=== PATIENT | female | born 1935 | race Caucasian/White ===

== ENCOUNTER 2018-06-03 15:53 | Emergency (ER) | payer OTHER, MEDICARE ==
--- NOTE | 2018-06-03 16:29 | RAD REPORT ---
EXAM DESCRIPTION: CT - Head C Spine Mpr Wo Con - 06/03/2018 4:18 pm CLINICAL HISTORY: Head and neck injury status post fall. Head and neck pain COMPARISON: None. TECHNIQUE: Computed axial tomography of the head and cervical spine was obtained. Sagittal and coronal reconstruction was performed. All CT scans are performed using dose optimization technique as appropriate and may include automated exposure control or mA/KV adjustment according to patient size. FINDINGS: An intracranial bleed is not seen. The ventricles are normal in caliber. An extra-axial fl uid collection is not noted.Fluid within the visualized sinuses and mastoids is not seen A cervical fracture is not visualized. No dislocation is noted. Mild posterior subluxation of C4 on C 5 with disc space narrowing and osteophytes. This probably is chronic. IMPRESSION: No acute intracranial abnormality is seen. A cervical fracture is not visualized. If the patient continues to have symptoms to suggest intracra nial /spinal cord/ligamentous pathology then MRI would be recommended
--- NOTE | 2018-06-03 16:30 | RAD REPORT ---
EXAM DESCRIPTION: RAD - Wrist Left 2 View - 06/03/2018 4:13 pm CLINICAL HISTORY: Left wrist pain status post fall FINDINGS: Limited two-view series was obtained. Bones are osteoporotic. No fracture or dislocation seen. If patient continues have symptoms to suggest an occult fracture fol low-up three-view plain film series in 1 week would be recommended
--- NOTE | 2018-06-03 16:44 | ER ---
Nurse's Notes [facility] Name: Tavia Nunez Age: 82 yrs Sex: Female : 1935 Arrival Date: 06/03/2018 Time: 15:55 Bed 4 Private MD: Diagnosis: Other slipping, tripping and stumbling and falls;Pain in left wrist;Contusion of left wrist Presentation: 06/03 15:57 Presenting complaint: EMS states: [facility] states pt had an unwitnessed tw2 fall this morning and originally had no complaints, now she c/o pain to the LEFT wrist, vs stable, HX: COPD, dementia, oxygen use 3L nc. Transition of care: patient was received from another setting of care (long-term care facility), [facility]. Onset of symptoms was June 03, 2018. Risk Assessment: Do you want to hurt yourself or someone else? Patient reports no desire to harm self or others. Initial Sepsis Screen: Does the patient meet any 2 criteria? No. Patient's initial sepsis screen is negative. Does the patient have a suspected source of infection? No. Patient's initial sepsis screen is negative. Care prior to arrival: None. 15:57 Method Of Arrival: EMS: [facility] [place] tw2 15:57 Acuity: TOVA 3 tw2 16:00 Mechanism of Injury: Fall unwitnessed, so unknown. Trauma event details: Injury sg occurred in the [facility], Injury occurred: [facility] Injury occurred: June 03, 2018. Trauma Activation: Alert Physician: ED Physician; Name: ; Notified At: ; Arrived At: Physician: General Surgeon; Name: ; Notified At: ; Arrived At: Physician: Radiology; Name: ; Notified At: ; Arrived At: Physician: Respiratory; Name: ; Notified At: ; Arrived At: Physician: Lab; Name: ; Notified At: ; Arrived At: Historical: - Allergies: 16:09 No Known Allergies; tw2 - Home Meds: 16:09 acetaminophen 325 mg Oral tab 2 tabs every 6 hours [Active]; bisacodyl 5 mg Oral TbEC 2 tw2 tabs [Active]; Brovana 15 mcg/2 mL inhalation nebu 2 mL 2 times per day [Active]; citalopram 20 mg tab 1 tab once daily [Active]; Evista 60 mg Oral tab 1 tab once daily [Active]; ipratropium-albuterol 0.5 mg-3 mg(2.5 mg base)/3 mL Inhl nebu 3 mL 4 times per day [Active]; lovastatin 10 mg Oral tab 1 tab once daily [Active]; mirtazapine 7.5 mg Oral tab 2 tabs once daily [Active]; Restasis 0.05 % ophthalmic dpet 1 drop 2 times per day [Active]; Spiriva with HandiHaler 18 mcg inhalation CpDv 1 cap once daily [Active]; spironolactone 25 mg Oral tab 1 tab once daily [Active]; Tussin DM 10-100 mg/5 mL oral syrp 10 mL every 4 hours [Active]; Xanax 0.5 mg Oral tab 1 tab 3 times per day [Active]; - PMHx: 16:09 COPD; Dementia; Chronic pain; major depressive disorder; tw2 - Immunization history: Last tetanus immunization: unknown. - Social history:: Smoking status: . - Ebola Screening: : Patient negative for fever greater than or equal to 101.5 degrees Fahrenheit, and additional compatible Ebola Virus Disease symptoms Patient denies exposure to infectious person Patient denies travel to an Ebola-affected area in the 21 days before illness onset No symptoms or risks identified at this time. Screenin:00 Abuse screen: Denies threats or abuse. Denies injuries from another. Tuberculosis sg screening: No symptoms or risk factors identified. Never had TB. 16:00 Nutritional screening: No deficits noted. Fall Risk Fall in past 12 months (25 points). sg Primary Survey: 16:00 NO uncontrolled hemorrhage observed. A: The patient is alert. Airway: patent. tw2 Breathing/Chest: Respiratory pattern: regular, Respiratory effort: spontaneous, unlabored, Breath sounds: clear, bilaterally. Chest inspection: symmetrical rise and fall of the chest. Circulation: Heart tones present. Disability Alert. Exposure/Environment: A warming method has been applied: A warm blanket has been provided to the patient. 16:05 Reassessment Airway Airway Patent Oxygen No O2 Oral cavity Clear Breathing/Chest sg Respiratory pattern Regular Respiratory effort Spontaneous Unlabored Breath sounds Clear Chest inspection Symmetrical Circulation Heart tones Present Color [place] Temperature Warm Dry. Secondary Survey: 16:00 HEENT: No deficits noted. Gastrointestinal: No deficits noted. Abdomen is soft, sg non-distended, Bowel sounds present in all quadrants. Palpation No deficit noted. : No signs and/or symptoms were reported regarding the genitourinary system. Musculoskeletal: Circulation, motion, and sensation intact. Range of motion: intact in all extremities, Swelling present in left wrist bruising that is dark purple and green and yellow noted to wrist. Assessment: 15:57 Reassessment: Dr. Nunez at bedside at this time. tw2 16:10 General: Appears in no apparent distress. comfortable, well groomed, well developed, sg well nourished, Behavior is calm, cooperative, appropriate for age. Pain: Complains of pain in thoracic area and left wrist Quality of pain is described as tender, throbbing. 16:53 Reassessment: Report called to Ros nurse at [facility] for [facility] awaiting transport back to [place] at this time. Vital Signs: 15:57 Temp 97.6(O); tw2 15:57 BP 130 / 74; Pulse 82; Resp 21; Pulse Ox 96% on R/A; sg Kristin Coma Score: 15:57 Eye Response: spontaneous(4). Verbal Response: oriented(5). Motor Response: obeys tw2 commands(6). Total: 15. 15:57 Eye Response: spontaneous(4). Verbal Response: oriented(5). Motor Response: obeys sg commands(6). Total: 15. Trauma Score (Adult): 15:57 Eye Response: spontaneous(1); Verbal Response: oriented(1); Motor Response: obeys tw2 commands(2); Systolic BP: > 89 mm Hg(4); Respiratory Rate: 10 to 29 per min(4); Kristin Score: 15; Trauma Score: 12 16:57 Eye Response: spontaneous(1); Verbal Response: confused(1); Motor Response: obeys sg commands(2); Systolic BP: > 89 mm Hg(4); Respiratory Rate: 10 to 29 per min(4); [place] Score: 14; Trauma Score: 12 ED Course: 15:55 Patient arrived in ED. tw2 15:56 Geovany Nunez MD is Attending Physician. kdr 15:59 Triage completed. tw2 16:00 Patient maintains SpO2 saturation greater than 95% on room air. sg 16:00 Thermoregulation: warm blanket given to patient. sg 16:02 Patient has correct armband on for positive identification. Bed in low position. Call sg light in reach. Side rails up X2. groundwater monitoring technician on. Pulse ox on. NIBP on. Door closed. Warm blanket given. Pillow given. Head of bed elevated. 16:[address] via stretcher. nj 16:13 Wrist Left 2 View In Process Unspecified. EDMS 16:15 CT completed. Patient tolerated procedure well. Patient moved back from CT. nj 16:15 Arm band placed on. sg 16:18 Head C Spine Mpr Wo Con In Process Unspecified. EDMS 16:30 No provider procedures requiring assistance completed. Patient did not have IV access sg during this emergency room visit. 16:55 Enrique Aguilar, RN is Primary Nurse. sg Administered Medications: No medications were administered Output: 16:57 Urine: 250ml (Voided); Total: 250ml. sg Outcome: 16:44 Discharge ordered by . kdr 16:50 Discharged to detention. Report called to Ros MAGANA sg 16:50 Condition: good 16:50 Instructed on follow up and referral plans. medication usage, safety practices, Demonstrated understanding of instructions, follow-up care, Prescriptions given X 1. 16:50 Patient's length of stay was not longer than 2 hours. 16:55 Discharge instructions given to patient, family, Ros MAGANA at [facility] 16:56 Patient left the ED. sg Signatures: Dispatcher [employer] EDDE Enrique Aguilar, RN RN Geovany Nunez MD MD [facility] Alexus Covington RN RN tw2 Nabor Perdomo Corrections: (The following items were deleted from the chart) 16:14 16:[address] via stretcher. nj nella
--- NOTE | 2018-06-03 16:44 | EDPHYS ---
Physician Documentation [facility] Name: Tavia Nunez Age: 82 yrs Sex: Female : 1935 Arrival Date: 06/03/2018 Time: 15:55 Bed 4 Private MD: ED Physician Geovany Nunez HPI: 06/03 17:07 This 82 yrs old Female presents to ER via EMS with complaints of Fall Injury. kdr 17:07 Details of fall: The patient fell from an upright position, while standing, while kdr walking. Onset: The symptoms/episode began/occurred suddenly, just prior to arrival. Associated injuries: The patient sustained left wrist. Severity of symptoms: At their worst the symptoms were very mild, in the emergency department the symptoms are unchanged. It is unknown whether or not the patient has had similar symptoms in the past. It is unknown whether or not the patient has recently seen a physician. The patient was found [facility] the ground by the jail staff. Her fall was unwitnessed. Historical: - Allergies: 16:09 No Known Allergies; tw2 - Home Meds: 16:09 acetaminophen 325 mg Oral tab 2 tabs every 6 hours [Active]; bisacodyl 5 mg Oral TbEC 2 tw2 tabs [Active]; Brovana 15 mcg/2 mL inhalation nebu 2 mL 2 times per day [Active]; citalopram 20 mg tab 1 tab once daily [Active]; Evista 60 mg Oral tab 1 tab once daily [Active]; ipratropium-albuterol 0.5 mg-3 mg(2.5 mg base)/3 mL Inhl nebu 3 mL 4 times per day [Active]; lovastatin 10 mg Oral tab 1 tab once daily [Active]; mirtazapine 7.5 mg Oral tab 2 tabs once daily [Active]; Restasis 0.05 % ophthalmic dpet 1 drop 2 times per day [Active]; Spiriva with HandiHaler 18 mcg inhalation CpDv 1 cap once daily [Active]; spironolactone 25 mg Oral tab 1 tab once daily [Active]; Tussin DM 10-100 mg/5 mL oral syrp 10 mL every 4 hours [Active]; Xanax 0.5 mg Oral tab 1 tab 3 times per day [Active]; - PMHx: 16:09 COPD; Dementia; Chronic pain; major depressive disorder; tw2 - Immunization history: Last tetanus immunization: unknown. - Social history:: Smoking status: . - Ebola Screening: : Patient negative for fever greater than or equal to 101.5 degrees Fahrenheit, and additional compatible Ebola Virus Disease symptoms Patient denies exposure to infectious person Patient denies travel to an Ebola-affected area in the 21 days before illness onset No symptoms or risks identified at this time. ROS: 17:07 Constitutional: Unable to obtain as the patient is a poor historian Eyes: Negative for kdr injury, pain, redness, and discharge. 17:07 Unable to obtain ROS due to baseline dementia. Exam: 17:07 Constitutional: This is a well developed, well nourished patient who is awake, alert, kdr and in no acute distress. Head/Face: Normocephalic, atraumatic. Eyes: Pupils equal round and reactive to light, extra-ocular motions intact. Lids and lashes normal. Conjunctiva and sclera are non-icteric and not injected. Cornea within normal limits. Periorbital areas with no swelling, redness, or edema. Neck: Trachea midline, no thyromegaly or masses palpated, and no cervical lymphadenopathy. Supple, full range of motion without nuchal rigidity, or vertebral point tenderness. No Meningismus. Chest/axilla: Normal chest wall appearance and motion. Nontender with no deformity. No lesions are appreciated. Cardiovascular: Regular rate and rhythm with a normal S1 and S2. No gallops, murmurs, or rubs. Normal PMI, no JVD. No pulse deficits. Respiratory: Lungs have equal breath sounds bilaterally, clear to auscultation and percussion. No rales, rhonchi or wheezes noted. No increased work of breathing, no retractions or nasal flaring. Abdomen/GI: Soft, non-tender, with normal bowel sounds. No distension or tympany. No guarding or rebound. No evidence of tenderness throughout. Back: No spinal tenderness. No costovertebral tenderness. Full range of motion. Skin: Warm, dry with normal turgor. Normal color with no rashes, no lesions, and no evidence of cellulitis. There are some contusions around the left wrist 17:07 Neuro: Orientation: to person, place, Mentation: slow to respond, confused, Cerebellar function: unable to test. Vital Signs: 15:57 Temp 97.6(O); tw2 15:57 BP 130 / 74; Pulse 82; Resp 21; Pulse Ox 96% on R/A; sg Kristin Coma Score: 15:57 Eye Response: spontaneous(4). Verbal Response: oriented(5). Motor Response: obeys tw2 commands(6). Total: 15. 15:57 Eye Response: spontaneous(4). Verbal Response: oriented(5). Motor Response: obeys sg commands(6). Total: 15. Trauma Score (Adult): 15:57 Eye Response: spontaneous(1); Verbal Response: oriented(1); Motor Response: obeys tw2 commands(2); Systolic BP: > 89 mm Hg(4); Respiratory Rate: 10 to 29 per min(4); Kristin Score: 15; Trauma Score: 12 16:57 Eye Response: spontaneous(1); Verbal Response: confused(1); Motor Response: obeys sg commands(2); Systolic BP: > 89 mm Hg(4); Respiratory Rate: 10 to 29 per min(4); Kristin Score: 14; Trauma Score: 12 MDM: 16:44 Patient medically screened. kdr 17:17 Data reviewed: vital signs, radiologic studies. Counseling: I had a detailed discussion kdr with the patient and/or guardian regarding: the historical points, exam findings, and any diagnostic results supporting the discharge/admit diagnosis, radiology results, the need for outpatient follow up. 06/03 16:12 Order name: Wrist Left 2 View; Complete Time: 16:42 EDMS 06/03 16:13 Order name: Head C Spine Mpr Wo Con; Complete Time: 16:42 EDMS Administered Medications: No medications were administered Disposition: 06/03/18 16:44 Discharged to Home. Impression: Other slipping, tripping and stumbling and falls, Pain in left wrist, Contusion of left wrist. - Condition is Stable. - Discharge Instructions: Musculoskeletal Pain, Wrist Pain, [id number], Head Injury, Adult, [id number]. - Prescriptions for Motrin IB 200 mg Oral Tablet - take 2 tablet by ORAL route every 4-6 hours As needed as needed with food; 20 tablet. - Medication Reconciliation Form, Thank You Letter form. - Follow up: Private Physician; When: 2 - 3 days; Reason: If symptoms return, Further diagnostic work-up, Recheck today's complaints, Continuance of care, Re-evaluation by your physician. - Problem is new. - Symptoms have improved. Signatures: Dispatcher [employer] EDWY Enrique Aguilar, RN RN sg Geovany Nunez MD MD [facility] Alexus Covington RN RN tw2 Corrections: (The following items were deleted from the chart) 16:12 16:03 Wrist Left 3 View+RAD.RAD.BRZ ordered. EDWY EDMS 16:14 16:03 Head Brain Wo Cont+CT.RAD.BRZ ordered. [facility] EDWY 16:56 16:44 06/03/2018 16:44 Discharged to Home. Impression: Other slipping, tripping and sg stumbling and falls; Pain in left wrist; Contusion of left wrist. Condition is Stable. Forms are Medication Reconciliation Form, Thank You Letter, Antibiotic Education, Prescription Opioid Use. Follow up: Private Physician; When: 2 - 3 days; Reason: If symptoms return, Further diagnostic work-up, Recheck today's complaints, Continuance of care, Re-evaluation by your physician. Problem is new. Symptoms have improved. kdr
== END 2018-06-03 16:56 | disposition home or self-care (01) ==
LOC: ER 15:53
DX: S60.212A Contusion of left wrist, initial encounter (principal); W18.39XA Other fall on same level, initial encounter; Y93.01 Activity, walking, marching and hiking; Y92.129 Unspecified place in nursing home as the place of occurrence of the external cause; F03.90 Unspecified dementia, unspecified severity, without behavioral disturbance, psychotic disturbance, mood disturbance, and anxiety; F32.9 Major depressive disorder, single episode, unspecified; J44.9 Chronic obstructive pulmonary disease, unspecified
CPT/HCPCS: 70450; 72125; 99285